=== PATIENT | male | born 1970 | race Caucasian/White ===

== ENCOUNTER 2016-07-24 10:41 | Outpatient (CLI) | payer BC | END 2016-07-24 23:00 | LOC: LAB SRH 10:41 | DX: R63.4 Abnormal weight loss (principal); M25.50 Pain in unspecified joint | CPT/HCPCS: 90065; 90074; 90225; 90617; 91490; 92235; 92610; 92912; 97020 ==

== ENCOUNTER 2016-07-31 12:53 | Outpatient (CLI) | payer BC ==
--- NOTE | 2016-07-31 17:23 | DIAGNOSTIC IMAGING REPORT ---
REFERRING PHYSICIAN/PROVIDER: Cosmo Lozano MD CONSULTING DIRECTOR OF FOOD AND NUTRITION SERVICES: William Dalal Jr MD INDICATION: CHEST PAIN Procedure: A two-dimensional transthoracic echocardiogram with color flow and Doppler was performed. The study quality was technically adequate. The patient was in normal sinus rhythm during the exam. Left Ventricle: The left ventricle is normal in size, wall thickness, and systolic function without any focal wall motion abnormalities. There is no ventricular septal defect visualized. The ejection fraction is estimated to be 55-60%. Assessment of diastolic parameters indicates normal left ventricular diastolic function and normal filling pressures. Right Ventricle: The right ventricle is normal in size and function. Atria: Both atria are normal in size. The interatrial septum is intact with no evidence for an atrial septal defect. Mitral Valve: The mitral valve is normal in structure and function. There is trace mitral regurgitation. Aortic Valve: The aortic valve is trileaflet. The aortic valve opens well. There is no aortic regurgitation. Tricuspid Valve: The tricuspid valve leaflets are thin and pliable. There is mild tricuspid regurgitation. The right ventricular systolic pressure is estimated at 21 mmHg assuming a right atrial pressure of 3 mm Hg. Pulmonic Valve: The pulmonic valve is normal in structure and function. There is a trace or physiologic amount of pulmonic regurgitation. There is no other significant valvular heart disease. Great Vessels: The aortic root is normal size. The dimensions of the ascending aorta are normal. The IVC is of normal diameter and collapses greater than 50% with a sniff. This suggests a low right atrial pressure of 3 mm Hg. Pericardium/ Pleura There is no pericardial effusion. IMPRESSION: The left ventricle is normal in size, wall thickness, and systolic function without any focal wall motion abnormalities. The ejection fraction is estimated to be 55-60%. The right ventricle is normal in size and function. The right ventricular systolic pressure is estimated at 21 mmHg assuming a right atrial pressure of 3 mm Hg. Both atria are normal in size. There is mild tricuspid regurgitation. There is no other significant valvular heart disease. The aortic root is normal size.
== END 2016-07-31 23:00 ==
LOC: US SRH 12:53
DX: R07.9 Chest pain, unspecified (principal); I07.1 Rheumatic tricuspid insufficiency